=== PATIENT | female | born 1955 | race Two or more races ===

== ENCOUNTER 2020-06-01 09:13 | Inpatient (IN) | payer OTHER ==
[~2020-06-01] VITALS: Ht 154.9 cm; Wt 72.7 kg
--- NOTE | 2020-06-01 09:55 | NUR ---
pt brought to room 4 from the tens where pt o2 was 89%ra, opt placed an 2l nasal canula spo2 94%
--- NOTE | 2020-06-01 10:15 | NUR ---
O2 TURNED OFF FOR 1 MINUTE, I HAD PT WALK IN PLACE, PT'S SPO2 88%RA. PT BEGN TO COUGH. I H PT GET BACK IN BED WITH SPO2 92% 2L.
[2020-06-01] MEDS ORDERED: dexamethasone sod phosphate 10mg/ml inj IV STA (10:54)
[2020-06-01 11:46] LABS: C-REACTIVE PROTEIN 9.32 MG/DL (0.0-0.5)
[2020-06-01] MEDS ORDERED: morphine 2 MG/ML inj. syringe IV PRN ×2 (11:55)
[2020-06-01] MEDS ORDERED: magnesium hydroxide 30ml (MOM) UD suspension PO PRN (11:55)
[2020-06-01] MEDS ORDERED: ondansetron/PF 4mg/2ml inj IV PRN (11:55)
[2020-06-01] MEDS ORDERED: HYDROcodone/acetaminophen 5mg/325mg tablet PO PRN (11:55)
[2020-06-01] MEDS ORDERED: HYDROcodone/acetaminophen 10/325mg tab PO PRN (11:55)
[2020-06-01] MEDS ORDERED: acetaminophen 325mg tablet PO PRN ×2 (11:55)
[2020-06-01] MEDS ORDERED: mag hydrox/Alum hydrox/simeth 30ml oral suspension PO PRN (11:55)
[2020-06-01] MEDS ORDERED: CefTRIAXone 2gm/D5W 50ml BAG 50 ML IV ONE (12:25)
[2020-06-01] MEDS ORDERED: NO HOME MEDS (12:28)
[2020-06-01 12:31] LABS: BASOPHILS % (AUTO) 0.1 % (0-1); EOSINOPHILS % (AUTO) 0.1 % (0-6); HEMATOCRIT 39.1 % (35.0-45.0); HEMOGLOBIN 13.3 g/dl (12.0-16.0); LYMPHOCYTES # (AUTO) 0.7 X10'3 (1.1-4.8); LYMPHOCYTES % (AUTO) 14.5 % (21-51); MEAN CORPUSCULAR HEMOGLOBIN 31.2 PG (27.0-31.0); MEAN CORPUSCULAR HGB CONC 33.9 g/dL (33.0-36.5); MEAN PLATELET VOLUME 7.9 FL (7.4-10.4); MONOCYTES # (AUTO) 0.3 X10'3 (0-0.9); MONOCYTES % (AUTO) 6.9 % (2-12); NEUTROPHILS # (AUTO) 3.7 X10'3 (1.8-7.7); NEUTROPHILS % (AUTO) 78.4 % (42-75); PLATELET COUNT 351 X10'3 (140-440); RED BLOOD COUNT 4.25 X10'6 (4.20-5.60); RED CELL DISTRIBUTION WIDTH 13.6 % (11.5-14.5); WHITE BLOOD COUNT 4.7 X10'3 (4.5-11.0)
[2020-06-01 12:52] LABS: ALBUMIN 2.7 G/DL (3.4-5.0); ANION GAP 11 (8-16); BLOOD UREA NITROGEN 7 MG/DL (7-18); BUN/CREATININE RATIO 11.1 (6.6-38.0); CALCIUM 8.5 MG/DL (8.5-10.1); CHLORIDE 103 MMOL/L (99-107); CREATININE 0.63 MG/DL (0.40-0.90); GLUCOSE 108 MG/DL (70-104); SODIUM 140 MMOL/L (135-145); TOTAL CARBON DIOXIDE 26.3 MMOL/L (24-32); TROPONIN I < 0.04 NG/ML (0.0-0.05); eGFR > 90 ML/MIN
[2020-06-01 12:53] LABS: POTASSIUM 3.8 MMOL/L (3.5-5.1)
[2020-06-01 14:30] VITALS: BP 105/34
[2020-06-01 18:00] VITALS: BP 127/69
--- NOTE | 2020-06-01 18:10 | NUR ---
Patient in room ORTHO 4022. I have received report from LIDIA Neal and had the opportunity to ask questions and assume patient care.
[2020-06-01] MEDS: dexamethasone 4mg/ml inj IV SCH (19:31)
[2020-06-01 22:00] VITALS: BP 105/45
[2020-06-02 06:00] VITALS: BP 105/43
--- NOTE | 2020-06-02 06:23 | NUR ---
Patient in room ORTHO 4022B. I have received report from LIDIA BENAVIDES and had the opportunity to ask questions and assume patient care.
--- NOTE | 2020-06-02 06:42 | NUR ---
Problems reprioritized. Patient report given, questions answered & plan of care reviewed with LIDIA Neal.
[2020-06-02] MEDS: dexamethasone 4mg/ml inj IV SCH (07:20)
[2020-06-02] MEDS: enoxaparin 40mg/0.4ml syringe SUBCUT SCH (07:24)
[2020-06-02] MEDS ORDERED: CefTRIAXone/D5W-Rocephin 1gm 50 ML IV SCH (08:00)
[2020-06-02 08:25] LABS: D-DIMER 1.26 MG/L FEU (0-0.50)
[2020-06-02 08:30] LABS: BASOPHILS % (AUTO) 0.3 % (0-1); EOSINOPHILS % (AUTO) 0 % (0-6); HEMATOCRIT 38.6 % (35.0-45.0); HEMOGLOBIN 13.3 g/dl (12.0-16.0); LYMPHOCYTES # (AUTO) 0.5 X10'3 (1.1-4.8); LYMPHOCYTES % (AUTO) 14.5 % (21-51); MEAN CORPUSCULAR HGB CONC 34.6 g/dL (33.0-36.5); MEAN CORPUSCULAR VOLUME 92.4 FL (78-98); MEAN PLATELET VOLUME 7.7 FL (7.4-10.4); MONOCYTES # (AUTO) 0.2 X10'3 (0-0.9); MONOCYTES % (AUTO) 6.2 % (2-12); NEUTROPHILS # (AUTO) 2.8 X10'3 (1.8-7.7); PLATELET COUNT 421 X10'3 (140-440); RED BLOOD COUNT 4.17 X10'6 (4.20-5.60); RED CELL DISTRIBUTION WIDTH 13.4 % (11.5-14.5); WHITE BLOOD COUNT 3.6 X10'3 (4.5-11.0)
[2020-06-02 08:46] LABS: ALBUMIN 2.4 G/DL (3.4-5.0); ANION GAP 9 (8-16); BLOOD UREA NITROGEN 9 MG/DL (7-18); BUN/CREATININE RATIO 14.5 (6.6-38.0); CALCIUM 8.6 MG/DL (8.5-10.1); CHLORIDE 105 MMOL/L (99-107); CREATININE 0.62 MG/DL (0.40-0.90); GLUCOSE 166 MG/DL (70-104); POTASSIUM 3.7 MMOL/L (3.5-5.1); SODIUM 143 MMOL/L (135-145); TOTAL CARBON DIOXIDE 29.2 MMOL/L (24-32); eGFR > 90 ML/MIN
[2020-06-02 10:00] VITALS: BP 103/54
[2020-06-02] MEDS ORDERED: REMDESIVIR 100MG inj. 200 MG in normal saline 100ml IV soln 100 ML IV ONE (10:45)
[2020-06-02 17:30] VITALS: BP 126/73
--- NOTE | 2020-06-02 18:27 | NUR ---
Problems reprioritized. Patient report given, questions answered & plan of care reviewed with LIDIA Jeffers.
--- NOTE | 2020-06-02 19:57 | NUR ---
Patient's oxygen saturation would not go over 88% on 14l high flow after using the bsc so increased her to 15l high flow oxygen and instructional technology teacher told me she is the low 90% now.
[2020-06-02 22:00] VITALS: BP 108/56
[2020-06-03 06:00] VITALS: BP 114/60
[2020-06-03 07:47] LABS: D-DIMER 1.47 MG/L FEU (0-0.50)
[2020-06-03 07:52] LABS: BASOPHILS % (AUTO) 0.2 % (0-1); EOSINOPHILS % (AUTO) 0 % (0-6); HEMATOCRIT 37.2 % (35.0-45.0); HEMOGLOBIN 12.7 g/dl (12.0-16.0); LYMPHOCYTES # (AUTO) 1.1 X10'3 (1.1-4.8); LYMPHOCYTES % (AUTO) 12.8 % (21-51); MEAN CORPUSCULAR HEMOGLOBIN 31.2 PG (27.0-31.0); MEAN CORPUSCULAR VOLUME 91.7 FL (78-98); MEAN PLATELET VOLUME 7.5 FL (7.4-10.4); MONOCYTES # (AUTO) 0.4 X10'3 (0-0.9); MONOCYTES % (AUTO) 5.2 % (2-12); NEUTROPHILS # (AUTO) 6.8 X10'3 (1.8-7.7); NEUTROPHILS % (AUTO) 81.8 % (42-75); PLATELET COUNT 496 X10'3 (140-440); RED BLOOD COUNT 4.06 X10'6 (4.20-5.60); RED CELL DISTRIBUTION WIDTH 13.6 % (11.5-14.5); WHITE BLOOD COUNT 8.3 X10'3 (4.5-11.0)
[2020-06-03] MEDS: dexamethasone 4mg/ml inj IV SCH (07:54)
[2020-06-03] MEDS: enoxaparin 40mg/0.4ml syringe SUBCUT SCH (07:54)
[2020-06-03 07:55] LABS: ALBUMIN 2.4 G/DL (3.4-5.0); ANION GAP 8 (8-16); BLOOD UREA NITROGEN 15 MG/DL (7-18); BUN/CREATININE RATIO 20.3 (6.6-38.0); C-REACTIVE PROTEIN 2.94 MG/DL (0.0-0.5); CALCIUM 8.5 MG/DL (8.5-10.1); CHLORIDE 108 MMOL/L (99-107); CREATININE 0.74 MG/DL (0.40-0.90); GLUCOSE 118 MG/DL (70-104); POTASSIUM 3.8 MMOL/L (3.5-5.1); SODIUM 145 MMOL/L (135-145); eGFR 79 ML/MIN
[2020-06-03] MEDS: REMDESIVIR 100MG inj. 100 MG in normal saline 100ml IV soln 100 ML IV SCH (07:55)
[2020-06-03 08:42] LABS: LACTATE DEHYDROGENASE 369 U/L (81-234)
[2020-06-03 10:00] VITALS: BP 105/51
[2020-06-03] MEDS: CefTRIAXone 2gm/D5W 50ml BAG 50 ML IV SCH (11:17)
[2020-06-03 18:00] VITALS: BP 109/62
--- NOTE | 2020-06-03 18:16 | NUR ---
Problems reprioritized. Patient report given, questions answered & plan of care reviewed with Annie MURILLO.
--- NOTE | 2020-06-03 18:30 | NUR ---
Patient in room ORTHO 4022. I have received report from Latoya MURILLO and had the opportunity to ask questions and assume patient care.
[2020-06-03] MEDS: lactobacillus rhamnosus 10,000 MMU CELLS/CAPSULE PO SCH (20:00)
[2020-06-03 22:00] VITALS: BP 113/62
[2020-06-04 06:00] VITALS: BP 106/55
--- NOTE | 2020-06-04 06:48 | NUR ---
Problems reprioritized. Patient report given, questions answered & plan of care reviewed with Latoya MURILLO..
[2020-06-04] MEDS: REMDESIVIR 100MG inj. 100 MG in normal saline 100ml IV soln 100 ML IV SCH (08:08)
[2020-06-04] MEDS: enoxaparin 40mg/0.4ml syringe SUBCUT SCH ×2 (08:08→20:03)
[2020-06-04] MEDS: lactobacillus rhamnosus 10,000 MMU CELLS/CAPSULE PO SCH ×2 (08:08→20:02)
[2020-06-04] MEDS: dexamethasone 4mg/ml inj IV SCH (08:09)
[2020-06-04 09:10] LABS: BASOPHILS % (AUTO) 0.4 % (0-1); EOSINOPHILS % (AUTO) 0.1 % (0-6); HEMATOCRIT 39.5 % (35.0-45.0); HEMOGLOBIN 13.3 g/dl (12.0-16.0); LYMPHOCYTES # (AUTO) 1.3 X10'3 (1.1-4.8); LYMPHOCYTES % (AUTO) 15.9 % (21-51); MEAN CORPUSCULAR HEMOGLOBIN 31.4 PG (27.0-31.0); MEAN CORPUSCULAR HGB CONC 33.7 g/dL (33.0-36.5); MEAN CORPUSCULAR VOLUME 93.1 FL (78-98); MEAN PLATELET VOLUME 7.4 FL (7.4-10.4); MONOCYTES # (AUTO) 0.5 X10'3 (0-0.9); MONOCYTES % (AUTO) 6.4 % (2-12); NEUTROPHILS # (AUTO) 6.1 X10'3 (1.8-7.7); NEUTROPHILS % (AUTO) 77.2 % (42-75); PLATELET COUNT 493 X10'3 (140-440); RED BLOOD COUNT 4.24 X10'6 (4.20-5.60); RED CELL DISTRIBUTION WIDTH 13.9 % (11.5-14.5); WHITE BLOOD COUNT 7.9 X10'3 (4.5-11.0)
[2020-06-04 09:29] LABS: D-DIMER 3.57 MG/L FEU (0-0.50)
[2020-06-04 10:00] VITALS: BP 97/48
[2020-06-04 10:22] LABS: ALBUMIN 2.5 G/DL (3.4-5.0); ANION GAP 9 (8-16); BLOOD UREA NITROGEN 16 MG/DL (7-18); C-REACTIVE PROTEIN 1.67 MG/DL (0.0-0.5); CALCIUM 8.4 MG/DL (8.5-10.1); CHLORIDE 109 MMOL/L (99-107); GLUCOSE 135 MG/DL (70-104); POTASSIUM 3.7 MMOL/L (3.5-5.1); SODIUM 144 MMOL/L (135-145); TOTAL CARBON DIOXIDE 26.1 MMOL/L (24-32); eGFR 72 ML/MIN
[2020-06-04] MEDS: CefTRIAXone 2gm/D5W 50ml BAG 50 ML IV SCH (10:48)
[2020-06-04] MEDS ORDERED: magnesium hydroxide 30ml (MOM) UD suspension PO PRN (11:15)
[2020-06-04 11:43] LABS: LACTATE DEHYDROGENASE 488 U/L (81-234)
[2020-06-04 18:00] VITALS: BP 128/62
[2020-06-04] MEDS ORDERED: docusate sod 100mg capsule PO SCH (20:00)
[2020-06-04] MEDS: docusate sod 100mg capsule PO SCH (20:03)
[2020-06-04] MEDS ORDERED: Melatonin 3mg tablet PO SCH (21:00)
[2020-06-04 22:00] VITALS: BP 130/58
[2020-06-05 06:00] VITALS: BP 122/54
--- NOTE | 2020-06-05 06:20 | NUR ---
Problems reprioritized. Patient report given, questions answered & plan of care reviewed with LIDIA Klein.
[2020-06-05] MEDS: REMDESIVIR 100MG inj. 100 MG in normal saline 100ml IV soln 100 ML IV SCH (07:34)
[2020-06-05] MEDS: lactobacillus rhamnosus 10,000 MMU CELLS/CAPSULE PO SCH ×2 (07:35→21:15)
[2020-06-05] MEDS: dexamethasone 4mg/ml inj IV SCH (07:35)
[2020-06-05] MEDS: enoxaparin 40mg/0.4ml syringe SUBCUT SCH ×2 (07:35→21:14)
[2020-06-05] MEDS: docusate sod 100mg capsule PO SCH ×2 (07:35→21:16)
[2020-06-05 08:00] LABS: BASOPHILS % (AUTO) 0.1 % (0-1); EOSINOPHILS % (AUTO) 0.1 % (0-6); HEMATOCRIT 36.8 % (35.0-45.0); HEMOGLOBIN 12.6 g/dl (12.0-16.0); LYMPHOCYTES # (AUTO) 1.4 X10'3 (1.1-4.8); LYMPHOCYTES % (AUTO) 22.1 % (21-51); MEAN CORPUSCULAR HEMOGLOBIN 31.8 PG (27.0-31.0); MEAN CORPUSCULAR HGB CONC 34.3 g/dL (33.0-36.5); MEAN CORPUSCULAR VOLUME 92.7 FL (78-98); MEAN PLATELET VOLUME 7.5 FL (7.4-10.4); MONOCYTES # (AUTO) 0.6 X10'3 (0-0.9); MONOCYTES % (AUTO) 9.1 % (2-12); NEUTROPHILS # (AUTO) 4.2 X10'3 (1.8-7.7); NEUTROPHILS % (AUTO) 68.6 % (42-75); PLATELET COUNT 512 X10'3 (140-440); RED BLOOD COUNT 3.96 X10'6 (4.20-5.60); WHITE BLOOD COUNT 6.1 X10'3 (4.5-11.0)
[2020-06-05 08:16] LABS: D-DIMER 2.25 MG/L FEU (0-0.50)
[2020-06-05 08:22] LABS: ALBUMIN 2.3 G/DL (3.4-5.0); ANION GAP 2 (8-16); BLOOD UREA NITROGEN 14 MG/DL (7-18); BUN/CREATININE RATIO 21.9 (6.6-38.0); C-REACTIVE PROTEIN 1.22 MG/DL (0.0-0.5); CALCIUM 8.1 MG/DL (8.5-10.1); CHLORIDE 106 MMOL/L (99-107); CREATININE 0.64 MG/DL (0.40-0.90); GLUCOSE 103 MG/DL (70-104); SODIUM 138 MMOL/L (135-145); TOTAL CARBON DIOXIDE 30.2 MMOL/L (24-32); eGFR > 90 ML/MIN
[2020-06-05 08:23] LABS: LACTATE DEHYDROGENASE 348 U/L (81-234); POTASSIUM 4.5 MMOL/L (3.5-5.1)
[2020-06-05 08:43] LABS: BURR CELLS FEW; LARGE PLATELETS FEW; PLATELET ESTIMATE INCREASED; SCHISTOCYTES FEW
[2020-06-05 10:00] VITALS: BP 103/53
[2020-06-05] MEDS: CefTRIAXone 2gm/D5W 50ml BAG 50 ML IV SCH (10:52)
--- NOTE | 2020-06-05 12:54 | NUR ---
Problems reprioritized. Patient report given, questions answered & plan of care reviewed with Chiquita MURILLO.
--- NOTE | 2020-06-05 13:00 | NUR ---
I agree with the previous nurses assessment.
[2020-06-05] MEDS ORDERED: zolpidem 5mg tablet PO PRN (13:20)
[2020-06-05 18:00] VITALS: BP 99/51
--- NOTE | 2020-06-05 18:40 | NUR ---
Problems reprioritized. Patient report given, questions answered & plan of care reviewed with Jaqueline MURILLO.
--- NOTE | 2020-06-05 20:35 | NUR ---
Pt. sitting up in bed awake, and alert. No c/o pain at this time. Mild coughing noted, pt denies c/o SOB at this time. Isolation precaution maintained. Call light within reach. Addendum: 06/05/20 at 2321 by Jaqueline Bowen RN Amended: Links added.
[2020-06-05] MEDS: Melatonin 3mg tablet PO SCH (21:15)
[2020-06-05 22:00] VITALS: BP 91/55
[2020-06-06 06:00] VITALS: BP 113/47
--- NOTE | 2020-06-06 06:00 | NUR ---
Problems reprioritized. Patient report given, questions answered & plan of care reviewed with Chelsie MURILLO. Addendum: 06/06/20 at 0621 by Jaqueline Bowen RN Problems reprioritized. Patient report given, questions answered & plan of care reviewed with Monae MURILLO.
--- NOTE | 2020-06-06 06:20 | NUR ---
received report from megan john
[2020-06-06] MEDS: enoxaparin 40mg/0.4ml syringe SUBCUT SCH ×2 (07:11→20:53)
[2020-06-06] MEDS: docusate sod 100mg capsule PO SCH ×2 (07:12→20:52)
[2020-06-06] MEDS: lactobacillus rhamnosus 10,000 MMU CELLS/CAPSULE PO SCH ×2 (07:12→20:52)
[2020-06-06] MEDS: dexamethasone 4mg/ml inj IV SCH (07:13)
[2020-06-06] MEDS: REMDESIVIR 100MG inj. 100 MG in normal saline 100ml IV soln 100 ML IV SCH (07:13)
[2020-06-06] MEDS: CefTRIAXone 2gm/D5W 50ml BAG 50 ML IV SCH (07:13)
[2020-06-06 07:46] LABS: BASOPHILS % (AUTO) 0.1 % (0-1); EOSINOPHILS % (AUTO) 0.1 % (0-6); HEMATOCRIT 36.5 % (35.0-45.0); HEMOGLOBIN 12.5 g/dl (12.0-16.0); LYMPHOCYTES # (AUTO) 1.6 X10'3 (1.1-4.8); LYMPHOCYTES % (AUTO) 23.7 % (21-51); MEAN CORPUSCULAR HEMOGLOBIN 31.6 PG (27.0-31.0); MEAN CORPUSCULAR HGB CONC 34.2 g/dL (33.0-36.5); MEAN CORPUSCULAR VOLUME 92.6 FL (78-98); MEAN PLATELET VOLUME 7.5 FL (7.4-10.4); MONOCYTES # (AUTO) 0.6 X10'3 (0-0.9); MONOCYTES % (AUTO) 8.7 % (2-12); NEUTROPHILS # (AUTO) 4.7 X10'3 (1.8-7.7); NEUTROPHILS % (AUTO) 67.4 % (42-75); PLATELET COUNT 488 X10'3 (140-440); RED BLOOD COUNT 3.94 X10'6 (4.20-5.60); RED CELL DISTRIBUTION WIDTH 13.8 % (11.5-14.5); WHITE BLOOD COUNT 6.9 X10'3 (4.5-11.0)
--- NOTE | 2020-06-06 08:21 | NUR ---
admin IS and educated pt about utilizing her IS, pt showed me that is she able to use her IS, continue to encourage pt to use her IS Addendum: 06/06/20 at 0841 by Lakia Melton RN continue to encourage pt to deep breathe and cough
[2020-06-06 08:24] LABS: ALBUMIN 2.3 G/DL (3.4-5.0); ANION GAP 8 (8-16); BLOOD UREA NITROGEN 14 MG/DL (7-18); BUN/CREATININE RATIO 23.3 (6.6-38.0); C-REACTIVE PROTEIN 0.91 MG/DL (0.0-0.5); CALCIUM 8.1 MG/DL (8.5-10.1); CHLORIDE 106 MMOL/L (99-107); GLUCOSE 95 MG/DL (70-104); LACTATE DEHYDROGENASE 227 U/L (81-234); POTASSIUM 4.3 MMOL/L (3.5-5.1); SODIUM 140 MMOL/L (135-145); TOTAL CARBON DIOXIDE 26.2 MMOL/L (24-32); eGFR > 90 ML/MIN
[2020-06-06 10:00] VITALS: BP 90/41
--- NOTE | 2020-06-06 15:37 | NUR ---
Initial: Eating well, average PO intake 75-100% regular diet. Pt admitted with bilateral covid pneumonia, acute respiratory failure with hypoxia, resolved lactic acidosis per MD progress note. No nutrition problems at this time. Recommend: 1. continue regular diet 2. bowel care as needed 3. weekly weights Addendum: 06/06/20 at [address] Amended: Links added.
[2020-06-06 18:00] VITALS: BP 113/47
--- NOTE | 2020-06-06 18:20 | NUR ---
gave report to megan albarado
[2020-06-06] MEDS: Melatonin 3mg tablet PO SCH (20:52)
[2020-06-06 22:00] VITALS: BP 113/61
--- NOTE | 2020-06-07 00:03 | NUR ---
Pt noted to be low on spo2, 84%. battery charger conveyor line nurse requested pt to apply O2 2L/nc, to increase spo2 to at least 90%. Pt stated that she did not need it nor want it. Encouraged to use O2 during night. She stated that she would apply it and take it off later. will continue to monitor. pt is motivated to go home today. 06/07.
[2020-06-07 06:00] VITALS: BP 101/64
--- NOTE | 2020-06-07 06:17 | NUR ---
received report from megan albarado
[2020-06-07] MEDS: enoxaparin 40mg/0.4ml syringe SUBCUT SCH (07:43)
[2020-06-07] MEDS: dexamethasone 4mg/ml inj IV SCH (07:43)
[2020-06-07] MEDS: lactobacillus rhamnosus 10,000 MMU CELLS/CAPSULE PO SCH (07:43)
[2020-06-07] MEDS: docusate sod 100mg capsule PO SCH (07:43)
[2020-06-07] MEDS: CefTRIAXone 2gm/D5W 50ml BAG 50 ML IV SCH (07:43)
--- NOTE | 2020-06-07 08:56 | NUR ---
O2 Sat at rest on room air:__88_% If below 89%: Recovery O2 Sat at rest on __2_LPM:_97__%:___% via____nasal cannula (mask/nasal cannula, etc..) No further documentation is necessary. If O2 Sat did not drop below 89% on room air,ambulate patient on room air. O2 Sat while ambulating on room air:___% Recovery O2 Sat while ambulating on ___LPM:___% No further documentation is necessary. If patient does not drop below 89% while ambulating, he/she does not qualify for home O2.
[2020-06-07 09:13] LABS: D-DIMER 1.76 MG/L FEU (0-0.50)
[2020-06-07 09:19] LABS: C-REACTIVE PROTEIN 0.73 MG/DL (0.0-0.5)
[2020-06-07 10:00] VITALS: BP 85/46
--- NOTE | 2020-06-07 11:59 | NUR ---
gave report to megan paiz
[2020-06-07] MEDS ORDERED: RIVA10TA PO (12:05)
[2020-06-07] MEDS ORDERED: DEXA4TAB67 PO (12:05)
--- NOTE | 2020-06-07 15:57 | NUR ---
02 delivered, educated pt on use. waiting for ride
--- NOTE | 2020-06-08 14:54 | NUR ---
CASE MANAGEMENT DISCHARGE FOLLOW UP: Attempt to reach pt via [phone] number, line does not ring. Attempt to contact her Braulio at his work number [phone], left my name and number and requesting call back. Addendum: 06/08/20 at 1507 by Perla Cardoza RN 1500 Received call back from pt's , Braulio. He states that pt is doing better this morning. Wearing home O2 as needed, primarily while ambulating. Verbalized understanding to return to hospital is symptoms worsen. States that pt's medications have been picked up and that they have no questions and understand how pt is to take medications. States that has follow up appointment scheduled with PCP next week. He states that he has no questions, will provide contact info to if she has any further questions.
== END 2020-06-07 16:15 | disposition home or self-care (01) | DRG 177 ==
LOC: ER 09:14 → ED HOLD 11:54 → UNDOADMIN 12:16 → ED HOLD 12:16 → ORTHO 4S 14:20
PROVIDERS: ADMIT Internal Medicine; ATTEND Internal Medicine
PROC: XW033E5 Introduction of Remdesivir Anti-infective into Peripheral Vein, Percutaneous Approach, New Technology Group 5 (ICD-10-PCS; principal; 2020-06-02)
DX: U07.1 COVID-19 (principal); J12.89 Other viral pneumonia; J96.01 Acute respiratory failure with hypoxia; E87.2 Acidosis; G47.00 Insomnia, unspecified; Z79.899 Other long term (current) drug therapy
CPT/HCPCS: 36415; 71045; 80048; 82728; 83605; 83615; 83880; 84145; 84484; 85008; 85025; 85379; 85384; 86140; 87040; 87081; 94760; 96374; 99285; G0378; J0696; J1100; J1650